=== PATIENT | female | born 1990 | race Two or more races ===

== ENCOUNTER 2020-03-08 10:32 | Emergency (ER) | payer MEDICAID ==
[~2020-03-08] VITALS: Ht 175.3 cm; Wt 100.0 kg
[2020-03-08 10:58] VITALS: BP 159/95
--- NOTE | 2020-03-08 11:51 | NUR ---
PT TO HAVE CT DONE PER RADIOLOGIST. PT DENIES ANY PAIN UNLESS MOVING LEG. 3 P'S ADDRESSED.
== END 2020-03-08 13:47 | disposition home or self-care (01) ==
LOC: ED 11:36
DX: S83.92XA Sprain of unspecified site of left knee, initial encounter (principal); X50.0XXA Overexertion from strenuous movement or load, initial encounter; Y93.89 Activity, other specified; Y92.009 Unspecified place in unspecified non-institutional (private) residence as the place of occurrence of the external cause; Y99.8 Other external cause status
CPT/HCPCS: 29505; 99284